=== PATIENT | female | born 1990 | race Caucasian/White ===

== ENCOUNTER 2018-04-22 14:03 | Emergency (ER) | payer BC ==
--- NOTE | 2018-04-22 14:19 | EDM.PDOC ---
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 Today pt had episodic heavy vaginal bleeding with passage of clots and continued pain. She states her periods have always been regular every 35 days. Her next period isn't due until 6 days from now. She has had several negative home tests. She admits to nausea. Denies vomiting, fever, chills, diarrhea, constipation, back pain, flank pain, or dysuria. Pt is a G0, P0. Denies Hx of Abd/pelvic surgeries, STD, or abnormal PAP smears. Onset: Gradual Duration: Constant Location: Reports: Pelvis Quality: Reports: Sharp, Other (Cramping) Severity: Severe Improves with: Reports: None Worsens with: Reports: None Associated Symptoms: Reports: No Other Symptoms Lower Abdomen Pain Score (Numeric/FACES): 1 - Related Data Allergies Allergy/AdvReac Type Severity Reaction Status Date / Time Penicillins Allergy Weakness Verified 04/22/18 14:24 Home Meds: Home Meds . [No Known Home Meds] 04/21/16 [History] Past Medical History - Infectious Disease History Infectious Disease History: Reports: None - Past Surgical History HEENT Surgical History: Reports: Oral Surgery Social & Family History - Family History Family Medical History: Noncontributory - Caffeine Use Caffeine Use: Reports: Coffee - Living Situation & Occupation Living situation: Reports: with Significant Other Occupation: Employed ED ROS GENERAL - Review of Systems Review Of Systems: ROS reveals no pertinent complaints other than HPI. ED EXAM, RENAL/ - Physical Exam Exam: See Below Exam Limited By: No Limitations General Appearance: Alert, WD/WN, No Apparent Distress Nose: Normal Inspection, Normal Mucosa, No Blood Throat/Mouth: Normal Inspection, Normal Lips, Normal Teeth, Normal Gums, Normal Oropharynx, Normal Voice, No Airway Compromise Head: Atraumatic, Normocephalic Neck: Normal Inspection, Supple, Non-Tender, Full Range of Motion Respiratory/Chest: No Respiratory Distress, Lungs Clear, Normal Breath Sounds, No Accessory Muscle Use, Chest Non-Tender Cardiovascular: Regular Rate, Rhythm, No Edema GI/Abdominal: Normal Bowel Sounds, Soft, No Organomegaly, No Distention, No Abnormal Bruit, No Mass, Pelvis Stable, Tender (LLQ abd. and left pelvis). No: Guarding, Rigid (Female) Exam: Other (pt refuses pelvic exam) Rectal (Female) Exam: Deferred Back Exam: Normal Inspection, Full Range of Motion. No: CVA Tenderness (L), CVA Tenderness (R) Extremities: Normal Inspection, Normal Range of Motion, Non-Tender, Normal Capillary Refill, No Pedal Edema Neurological: Alert, Oriented, CN II-XII Intact, Normal Cognition, Normal Gait, No Motor/Sensory Deficits Course - Vital Signs Last Recorded V/S: Last Vital Signs Temp 37.3 C 04/22/18 14:20 Pulse 96 04/22/18 14:20 Resp 16 04/22/18 14:20 BP 123/81 04/22/18 14:20 Pulse Ox 97 04/22/18 14:20 - Orders/Labs/Meds Orders: Active Orders 24 hr Category Date Time Status Pelvis Non OB Comp [US] Urgent Exams 04/22/18 16:03 Taken Labs: Laboratory Tests 04/22/18 04/22/18 04/22/18 Range/Units 14:37 14:37 14:37 WBC 9.2 (5.0-10.0) 10^3/uL RBC 4.75 (4.2-5.4) 10^6/uL Hgb 13.9 (12.0-16.0) g/dL Hct 40.8 (37.0-47.0) % MCV 85.9 (80-100) fL MCH 29.3 (27.0-34.0) pg MCHC 34.1 (33.0-35.0) g/dL Plt Count 338 (150-450) 10^3/uL Neut % (Auto) 71.6 (42.2-75.2) % Lymph % (Auto) 20.3 L (20.5-50.1) % [place] % (Auto) 7.4 (2-8) % Eos % (Auto) 0.5 L (1.0-3.0) % Baso % (Auto) 0.2 (0.0-1.0) % Sodium 138 (135-145) mmol/L Potassium 3.7 (3.6-5.0) mmol/L Chloride 104 (101-111) mmol/L Carbon Dioxide 26.0 (21.0-31.0) mmol/L Anion Gap 11.7 BUN 14 (7-18) mg/dL Creatinine 1.0 (0.6-1.3) mg/dL Est Cr Clr Drug Dosing 79.99 mL/min Estimated GFR (MDRD) > 60 BUN/Creatinine Ratio 14.00 Glucose 93 (74-105) mg/dL Calcium 9.0 (8.4-10.2) mg/dl Total Bilirubin 0.7 (0.2-1.0) mg/dL AST 22 (10-42) IU/L ALT 29 (10-60) IU/L Alkaline Phosphatase 41 L (42-121) IU/L Total Protein 7.6 (6.7-8.2) g/dl Albumin 4.3 (3.2-5.5) g/dl Globulin 3.3 Albumin/Globulin Ratio 1.30 HCG, Qual Negative Urine Color (YELLOW) Urine Appearance (CLEAR) Urine pH (5.0-9.0) Ur Specific [place] (1.005-1.030) Urine Protein (NEGATIVE) Urine Glucose (UA) (NEGATIVE) Urine Ketones (NEGATIVE) Urine Occult Blood (NEGATIVE) Urine Nitrite (NEGATIVE) Urine Bilirubin (NEGATIVE) Urine Urobilinogen (0.2-1.0) mg/dL Ur Leukocyte Esterase (NEGATIVE) Urine RBC /HPF Urine WBC (0-5/HPF) /HPF Ur Epithelial Cells /HPF Amorphous Sediment (0/HPF) /HPF Urine Bacteria (0-FEW/HPF) /HPF Urine Mucus /LPF Urinalysis Comment 04/22/18 Range/Units 15:22 WBC (5.0-10.0) 10^3/uL RBC (4.2-5.4) 10^6/uL Hgb (12.0-16.0) g/dL Hct (37.0-47.0) % MCV (80-100) fL MCH (27.0-34.0) pg MCHC (33.0-35.0) g/dL Plt Count (150-450) 10^3/uL Neut % (Auto) (42.2-75.2) % Lymph % (Auto) (20.5-50.1) % [place] % (Auto) (2-8) % Eos % (Auto) (1.0-3.0) % Baso % (Auto) (0.0-1.0) % Sodium (135-145) mmol/L Potassium (3.6-5.0) mmol/L Chloride (101-111) mmol/L Carbon Dioxide (21.0-31.0) mmol/L Anion Gap BUN (7-18) mg/dL Creatinine (0.6-1.3) mg/dL Est Cr Clr Drug Dosing mL/min Estimated GFR (MDRD) BUN/Creatinine Ratio Glucose (74-105) mg/dL Calcium (8.4-10.2) mg/dl Total Bilirubin (0.2-1.0) mg/dL AST (10-42) IU/L ALT (10-60) IU/L Alkaline Phosphatase (42-121) IU/L Total Protein (6.7-8.2) g/dl Albumin (3.2-5.5) g/dl Globulin Albumin/Globulin Ratio HCG, Qual Urine Color Red (YELLOW) Urine Appearance Turbid (CLEAR) Urine pH 6.0 (5.0-9.0) Ur Specific [place] 1.020 (1.005-1.030) Urine Protein 100 H (NEGATIVE) Urine Glucose (UA) Negative (NEGATIVE) Urine Ketones Negative (NEGATIVE) Urine Occult Blood Large H (NEGATIVE) Urine Nitrite Negative (NEGATIVE) Urine Bilirubin Negative (NEGATIVE) Urine Urobilinogen 0.2 (0.2-1.0) mg/dL Ur Leukocyte Esterase Small H (NEGATIVE) Urine RBC >100 H /HPF Urine WBC 5-10 H (0-5/HPF) /HPF Ur Epithelial Cells Rare /HPF Amorphous Sediment Rare (0/HPF) /HPF Urine Bacteria Rare (0-FEW/HPF) /HPF Urine Mucus Rare /LPF Urinalysis Comment See note - Radiology Interpretation Free Text/Narrative:: Non-Ob pelvic US: no acute findings, see Rad. report. Departure - Departure Time of Disposition: 16:42 Disposition: Home, Self-Care 01 Condition: Good Clinical Impression: Dysfunctional uterine bleeding - Discharge Information *PRESCRIPTION DRUG MONITORING PROGRAM REVIEWED*: No *COPY OF PRESCRIPTION DRUG MONITORING REPORT IN PATIENT SUKUMAR: No Instructions: Dysfunctional Uterine Bleeding, Pelvic Pain, Female Forms: ED Department Discharge Additional Instructions: Use Ibuprofen (Advil/Motrin) 200mg: Take 3 tablets by mouth every 6 hours as needed for pain. Take with food. Follow up in clinic for recheck with your doctor if the bleeding last longer than a period, or if the pain persists. Return to ER if the pain becomes severe, you become lightheaded or faint, or have heavy vaginal bleeding (soaking one large pad per hour for 2 or more hours) . - My Orders Last 24 Hours: My Active Orders 04/22/18 16:03 Pelvis Non OB Comp [US] Urgent - Assessment/Plan Last 24 Hours: My Active Orders 04/22/18 16:03 Pelvis Non OB Comp [US] Urgent
[2018-04-22 14:21] VITALS: BP 123/81
[2018-04-22 15:02] LABS: ANION GAP 11.7; CHLORIDE,CL 104 mmol/L (101-111); SODIUM,NA 138 mmol/L (135-145)
--- NOTE | 2018-04-22 16:42 | US ---
Clinical history: 28-year-old female left pelvic pain and "abnormal" vaginal bleeding (LMP 3 2017). test "negative". Interpretation: Emergency sonogram pelvis unremarkable except for solitary nabothian cyst, cervix. Midline uterus normal size and anatomic configuration measures 10 cm in length and 3.25 cm AP diamete r with a normal 5.6 mm thin central endometrial "stripe". (Solitary nabothian cyst in cervix). No sign of myometrial fibroid mass lesion, endometrial polyp, fluid in the endometrial canal or intra /extrauterine gestational sac. Solitary 1 centimeter diameter cyst periphery of each ovary. No solid ovarian mass or extraovarian adnexal lesion. No free fluid in the cul-de-sac. Right ovary measures 3.17L x 2.3 cm W x 1.5 cm AP diameter. Left ovary measures 3.0 cm L x 2.7 cm W x 1.3 cm AP diameter.
== END 2018-04-22 17:22 | disposition home or self-care (01) ==
LOC: DL.ED 14:03
DX: N93.8 Other specified abnormal uterine and vaginal bleeding (principal); Z88.0 Allergy status to penicillin
CPT/HCPCS: 36415; 76856; 80053; 81001; 84703; 85025; 99284

== ENCOUNTER 2018-10-13 15:08 | Emergency (ER) | payer OTHER, BC ==
--- NOTE | 2018-10-13 15:37 | CR ---
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 Interpretation: Soft tissue swelling (STS) but no sign of underlying fracture or dislocation right middle (third) finger. No foreign bodies.
--- NOTE | 2018-10-13 15:43 | EDM.PDOC ---
ED HPI GENERAL MEDICAL PROBLEM - General Stated Complaint: MAY HAVE BROKEN FINGER Time Seen by Provider: 10/13/18 15:30 Source of Information: Reports: Patient History Limitations: Reports: No Limitations - History of Present Illness INITIAL COMMENTS - FREE TEXT/NARRATIVE: This 28 yo female patient reports to the ED with pain in right middle finger. The patient works at the [employer] and accidentally closed her finger in the [employer] door on 10/12/18 at about 0400 in the morning. The patient has experienced increased pain and swelling in the area since the time of the injury. The patient has been icing, elevating and immobilizing the injury. 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 [No Known Home Meds] 04/21/16 [History] Past Medical History - Infectious Disease History Infectious Disease History: Reports: None - Past Surgical History HEENT Surgical History: Reports: Oral Surgery Social & Family History - Family History Family Medical History: Noncontributory - Caffeine Use Caffeine Use: Reports: Coffee - Living Situation & Occupation Living situation: Reports: with Significant Other Occupation: Employed Review of Systems - Review of Systems Review Of Systems: ROS reveals no pertinent complaints other than HPI. ED EXAM, GENERAL - Physical Exam Exam: See Below Exam Limited By: No Limitations General Appearance: Alert, WD/WN, No Apparent Distress Eye Exam: Bilateral Eye: EOMI Nose: Normal Inspection Throat/Mouth: Normal Inspection Head: Atraumatic Extremities: Arm Pain (right 3rd hand pain) Neurological: Alert, Oriented, CN II-XII Intact, Normal Cognition, Normal Gait, Normal Reflexes, No Motor/Sensory Deficits Psychiatric: Normal Affect, Normal Mood Lymphatic: No Adenopathy Departure - Departure Time of Disposition: 15:44 Disposition: Home, Self-Care 01 Condition: Fair Clinical Impression: Contusion of right middle finger Qualifiers: Encounter type: initial encounter Damage to nail status: without damage Qualified Code(s): S60.031A - Contusion of right middle finger without damage to nail, initial encounter - Discharge Information *PRESCRIPTION DRUG MONITORING PROGRAM REVIEWED*: Not Applicable *COPY OF PRESCRIPTION DRUG MONITORING REPORT IN PATIENT SUKUMAR: Not Applicable Instructions: Contusion, [id number] Forms: ED Department Discharge Care Plan Goals: The patient was advised of the examination and x-ray results during the visit. The patient was encouraged to continue to rest, ice and elevate the extremity. If the patient has any additional symptoms or concerns, the patient should either return to the emergency department or visit the emergency department.
[2018-10-13 16:05] VITALS: BP 128/91
== END 2018-10-13 15:59 | disposition home or self-care (01) ==
LOC: DL.ED 15:08
DX: S60.031A Contusion of right middle finger without damage to nail, initial encounter (principal); Z88.0 Allergy status to penicillin; W23.0XXA Caught, crushed, jammed, or pinched between moving objects, initial encounter
CPT/HCPCS: 73140-F7; 99283-25

== ENCOUNTER 2019-10-25 07:39 | Inpatient (IN) | payer BC ==
[~2019-10-25 07:39] MED LIST: Carboprost Tromethamine 250 MCG/1 ML Amp IM PRN; Lidocaine 1% 30 ML SDV INJECT PRN; Methylergonovine 0.2 MG/1 ML Amp IM PRN; Misoprostol 400 MCG (4 X 100 MCG TAB) RECTAL PRN; Oxytocin/Normal Saline 30 UNIT/500 ML BAG IV SCH; Sodium Chloride 0.9% 10 ML Syringe FLUSH PRN; Tranexamic Acid 1,000 MG in Sodium Chloride 0.9% 100 ML IV PRN; fentaNYL 100 MCG/2 ML SDV IVPUSH PRN
[2019-10-25] MEDS: Misoprostol 25 MCG (1/4 of 100 MCG) Tab VAG PRN ×2 (08:20→12:25)
[2019-10-25] MEDS: Lactated Ringers 1,000 ML IV ONE (19:05)
[2019-10-25] MEDS: Ondansetron 4 MG/2 ML SDV IVPUSH PRN (23:25)
[2019-10-26] MEDS: Lactated Ringers 1,000 ML IV ONE ×2 (01:42→07:49)
[2019-10-26] MEDS ORDERED: hydrOXYzine HCl 25 MG Tab PO PRN (07:22)
[2019-10-26] MEDS: Ondansetron 4 MG/2 ML SDV IVPUSH PRN (07:41)
--- NOTE | 2019-10-26 07:54 | PN ---
DATE: 10/26/2019 SUBJECTIVE: Hospital day #2. The patient under induction of labor for mild preeclampsia. We are nearing the 24-hour jerry. She had 2 doses of Cytotec and contractions became too frequent to continue with the Cytotec and she was nila well on her own. However, the contractions had spaced out, so Pitocin was started around 5 o'clock this morning and is now up to 4. She is reporting that she is having difficulty finding positions of comfort. Her hips hurt, her buttocks hurt, her back hurts. She has cried 3 times over discomfort from the IV in her left arm and growing increasingly frustrated with the induction process and how much this is not in concordance with her plan. Baby movement still has been good. Her favorite thing to do is to take whirlpool bath. OBJECTIVE: Vital Signs: Most recent blood pressure 146/87, pulse of 88. She has had one pressure above 160. Otherwise, they have been hovering in the 140s and sometimes 150s/80s and 90s generally. Genitourinary: [place] shows baseline heart rate at 140, moderate beat-to- beat variability. Accelerations noted. Contractions every 3 to 4 minutes. Cervix 5 cm dilated, 75% and anterior position, and -2 station. Bag of water intact and was ruptured with AmniHook and I made sure that the head came down against the cervix without any other presenting parts and the patient tolerated well. Amniotic fluid clear. ASSESSMENT: 1. A 37 and 1/7 weeks 1, para 0. 2. Mild preeclampsia. 3. Undergoing induction of labor for mild preeclampsia. PLAN: Artificial rupture of membranes was performed. We will continue to monitor her closely and then anticipate continuing with the Pitocin and adjusting as needed. The patient did not have any decent sleep overnight, and we will offer her some Vistaril after we have a reactive tracing so that she can get some rest this morning, and hopefully we will be able to trace her contractions a little better as well. Since rupture variability has gone to moderate and baseline staying in the 140s, but she has had a couple of decels now, they are getting less intense with only 3 of them on the monitor, so we will just make sure that baby continues to tolerate and recheck her sooner if needed. [facility] /[id number]
[2019-10-26] MEDS ORDERED: fentaNYL 100 MCG/2 ML SDV ONE (08:08)
[2019-10-26] MEDS ORDERED: EPINEPHrine 1 MG/1 ML Amp ONE (08:08)
[2019-10-26] MEDS ORDERED: Simethicone 80 MG Tab.Chew PO PRN (08:49)
[2019-10-26] MEDS ORDERED: Benzocaine/Menthol 20%-0.5% Spray 56 GM Canister TOP PRN (08:49)
--- NOTE | 2019-10-26 09:09 | DEL ---
DATE: 10/26/2019 PRE PROCEDURE DIAGNOSES: 1. A 37 and 1/7 weeks intrauterine . 2. 1, para 0. 3. Mild preeclampsia. 4. Polyhydramnios. 5. Varicella, susceptible. 6. Bacterial vaginosis in the first trimester. POSTPROCEDURE DIAGNOSES: 1. A 37 and 1/7 weeks intrauterine . 2. 1, now para 1-0-0-1. 3. Mild preeclampsia. 4. Polyhydramnios. 5. Varicella, susceptible. 6. Bacterial vaginosis in the first trimester. 7. Status post spontaneous vaginal delivery. 8. Status post first-degree laceration repair. BRIEF HISTORY: A 29-year-old female admitted to the hospital for Cytotec induction because of mild preeclampsia at early term. She had 2 doses of Cytotec and that brought on nice regular contractions and got her to 4+ cm dilated. She continued to contract well on her own after that, but overnight, the contractions had spaced out and Pitocin was initiated at around 5 o'clock this morning, and only up to 3. When I came in at 7 o'clock, she was 5 cm dilated, 75% effaced, and bag of water was ruptured at 0709 with return of copious clear fluid. After that, the patient progressed very rapidly to complete just before 8 a.m., and we delivered at around 0804 a.m. with her only pushing through 1-1/2 contractions. DETAILS: With the patient in dorsal lithotomy position, she delivered a viable female over intact perineum in the OA position. Baby was dried and stimulated and short umbilical cord noted, so baby placed on mother's abdomen and 3-vessel umbilical cord was doubly clamped and then cut by the patient's and then baby allowed to stay with mom for skin to skin. Cord blood sample was obtained, however, it was noted that the umbilical cord had clotted rather rapidly, so I expressed the clot in order to obtain the blood sample, and when the nurse went to put the cord blood into the vial, she noted that the sample had clotted very quickly as well. Placenta delivered by gentle cord traction and concomitant uterine massage inspected and intact. Labia and vagina were inspected. There was a small first-degree laceration of the perineum that was bleeding and required repair, so she was anesthetized with approximately 10 mL of 1% lidocaine without epinephrine. 3-0 Vicryl running suture was then used to repair the laceration with approximately 4 throws and the patient tolerated this well. FINDINGS: Early term female . Weight 2560g, 5# 10oz and 9 & 9. Placenta intact with battledore insertion of the umbilical cord. Otherwise, normal in appearance to gross inspection and first-degree laceration repaired. ESTIMATED BLOOD LOSS: 200 mL. COMPLICATIONS: None. DISPOSITION: Mother and baby to stay in the room and initiate . [facility] /[id number]
[2019-10-26] MEDS: Docusate Sodium 100 MG Cap PO PRN ×2 (11:45→21:54)
[2019-10-26] MEDS: Ibuprofen 800 MG Tab PO PRN ×2 (13:32→23:22)
[2019-10-26] MEDS: Prenatal Multivitamin with Calcium/Folic Acid/Iron Tab PO SCH (13:33)
[2019-10-26] MEDS: Acetaminophen 325 MG Tab PO PRN ×2 (17:34→21:53)
[2019-10-27] MEDS: Acetaminophen 325 MG Tab PO PRN ×2 (04:59→14:53)
[2019-10-27] MEDS: Docusate Sodium 100 MG Cap PO PRN ×2 (08:12→21:44)
[2019-10-27] MEDS: Prenatal Multivitamin with Calcium/Folic Acid/Iron Tab PO SCH (08:12)
[2019-10-27] MEDS: Ibuprofen 800 MG Tab PO PRN ×2 (08:13→17:19)
--- NOTE | 2019-10-27 08:42 | PN ---
DATE: 10/27/2019 SUBJECTIVE: day #1. The patient is overall doing well. She has been ambulating and tolerating a regular diet. Reporting some discomfort in her right leg that seems to have gotten better when it instead turned into upper back pain, and she is reporting a pressure point in this region that usually resolved well without chiropractic treatment, but at this time the pain and muscle spasm she is experiencing is making it difficult for her to breathe. Denies any symptoms of respiratory or pulmonary etiology with her difficulty breathing and it is just a musculoskeletal etiology. Bleeding has been moderate. has been met with some difficulties and she is needing to use a tube at breast. Otherwise, she is denying any headaches, right upper quadrant pain, significant edema, or other symptoms of preeclampsia. OBJECTIVE: Vital Signs: Temperature is 98.5, pulse 68, blood pressure 148/91, prior to that 135/83, respiratory rate of 16. Heart: Regular without murmur. Lungs: Clear to auscultation bilaterally. Back: Upper back: Some muscle spasm is noted more so on the right than the left. Abdomen: Soft, nontender. Fundus is firm and below the umbilicus. Extremities: No edema, erythema, or tenderness noted. ASSESSMENT: 1. Mild preeclampsia. 2. Status post spontaneous vaginal delivery with first-degree laceration repair. 3. Varicella susceptible. 4. Upper back pain. PLAN: At this time, we are going to add some physical therapy to her regimen. Continue with support and anticipate discharge home tomorrow. Continue to watch her blood pressures and make sure that things do not spike. The patient has been educated that eclampsia can still present . Therefore, we would like to see that improved before we get her discharged home. At this time, electing not to use blood pressure medications because her pressures are only borderline and are expected to improve. [facility] /[id number]
[2019-10-28] MEDS: Prenatal Multivitamin with Calcium/Folic Acid/Iron Tab PO SCH ×2 (07:35→12:30)
[2019-10-28] MEDS: Docusate Sodium 100 MG Cap PO PRN (07:35)
[2019-10-28] MEDS: Acetaminophen 325 MG Tab PO PRN (07:35)
[2019-10-28] MEDS: Ibuprofen 800 MG Tab PO PRN (07:36)
[2019-10-28 08:37] VITALS: BP 158/93; PULSE 72
--- NOTE | 2019-10-31 16:45 | DISCH ---
ADMITTING DIAGNOSES: 1. 37 and 1/7 weeks intrauterine . 2. Mild preeclampsia. 3. Varicella susceptible. DISCHARGE DIAGNOSES: 1. 37 and 2/7 weeks, status post spontaneous vaginal delivery with first- degree laceration repair. 2. Back pain. 3. Mild preeclampsia. 4. Varicella susceptible. BRIEF HISTORY: A 29-year-old female, 1, para 0, with the above-listed diagnoses, brought into the hospital for Cytotec induction due to mild preeclampsia. Induction of labor went well, transitioning from Cytotec over to Pitocin. After she reached 5 cm, artificial rupture of membranes performed because contractions had slowed down and she was complete and delivered approximately 1 hour after rupture. She did receive 1 dose of fentanyl during her labor course. She had requested intrathecal but progressed too rapidly to receive 1 and only pushed for about 1-1/2 contractions. Of note, at delivery, the umbilical cord clotted very easily before I was able to collect the normal cord blood sample. The placenta also had a battledore insertion and a thin and short umbilical cord. Otherwise, no abnormalities were noted. HOSPITAL COURSE: Has been good. The patient tolerated labor and induction well. She has been bonding well with her baby. Breast milk has been slow to come in and she has been requiring tube at breast in order to keep baby stimulated and interested enough to remain at breast. The back pain improved after reduction of posterior dislocation and heating pad. Otherwise, she has been ambulating, tolerating regular diet, voiding and stooling without difficulties, and has no other acute concerns. DISCHARGE CONDITION: Good. PHYSICAL EXAMINATION: Vital Signs: Temperature is 98.2, pulse 72, blood pressure was 158/93, respiratory rate of 16. Heart: Regular without murmur. Lungs: Clear bilaterally with good chest expansion. Abdomen: Soft. Fundus is firm and below the umbilicus. Extremities: No edema, erythema, or tenderness noted. LABORATORY DATA: Admission hemoglobin was 11.5, platelets of 267. Less than 200 of EBL at delivery, therefore I did not recheck the hemoglobin. [facility] labs were negative except for protein-creatinine ratio of 0.45. MEDICATIONS: Ibuprofen 800 mg every 8 hours as needed for pain, Tylenol 650 to 1000 mg as needed for pain, iron 325 mg twice daily, Colace 100 mg twice daily as needed for constipation, vitamin continue 1 daily. FOLLOWUP: She will be seen in the office in a couple of days for repeat blood pressure when she brings her daughter in for first check. She has been educated about signs and symptoms of preeclampsia and to monitor her blood pressures at least once daily and to continue relatively low activity. Otherwise, pelvic rest for 6 weeks and routine post vaginal delivery care. Her questions have been answered. [facility] /[id number]
== END 2019-10-28 09:30 | disposition home or self-care (01) | DRG 560 ==
LOC: DL.OB 07:39 → OBSVTOIN 10-26 08:04
PROVIDERS: ADMIT Family Medicine; ATTEND Family Medicine
PROC: 10E0XZZ Delivery of Products of Conception, External Approach (ICD-10-PCS; principal; 2019-10-26)
PROC: 10907ZC Drainage of Amniotic Fluid, Therapeutic from Products of Conception, Via Natural or Artificial Opening (ICD-10-PCS; 2019-10-26)
PROC: 3E033VJ Introduction of Other Hormone into Peripheral Vein, Percutaneous Approach (ICD-10-PCS; 2019-10-26)
PROC: 0HQ9XZZ Repair Perineum Skin, External Approach (ICD-10-PCS; 2019-10-26)
DX: O14.04 Mild to moderate pre-eclampsia, complicating childbirth (principal); Z3A.37 37 weeks gestation of pregnancy; Z37.0 Single live birth; O40.3XX0 Polyhydramnios, third trimester, not applicable or unspecified; M54.6 Pain in thoracic spine; O70.0 First degree perineal laceration during delivery; Z28.82 Immunization not carried out because of caregiver refusal
CPT/HCPCS: 36415; 59409; 82565; 82570; 83615; 84156; 84450; 84460; 84520; 84550; 85027; A9270-GY; J2001; J2405; J2590; J3010; J7120

== ENCOUNTER 2021-11-23 11:19 | Inpatient (IN) | payer BC ==
[2021-11-23] MEDS ORDERED: Methylergonovine 0.2 MG/1 ML Amp IM PRN (12:50)
[2021-11-23] MEDS ORDERED: Acetaminophen 325 MG Tab PO PRN (12:50)
[2021-11-23] MEDS ORDERED: Ondansetron 4 MG/2 ML SDV IVPUSH PRN ×2 (12:50→12:54)
[2021-11-23] MEDS ORDERED: Lactated Ringers 1,000 ML IV ONE (12:50)
[2021-11-23] MEDS ORDERED: Carboprost Tromethamine 250 MCG/1 ML Amp IM PRN (12:50)
[2021-11-23] MEDS ORDERED: Sodium Chloride 0.9% 10 ML Syringe FLUSH PRN (12:50)
[2021-11-23] MEDS ORDERED: Lidocaine 1% 30 ML SDV INJECT PRN (12:50)
[2021-11-23] MEDS ORDERED: Misoprostol 400 MCG (4 X 100 MCG TAB) RECTAL PRN (12:50)
[2021-11-23] MEDS ORDERED: Tranexamic Acid 1,000 MG in Sodium Chloride 0.9% 100 ML IV PRN (12:50)
[2021-11-23] MEDS ORDERED: Promethazine 25 MG/ML SDV IM PRN (12:54)
[2021-11-23] MEDS ORDERED: Naloxone 2 MG/2 ML Syringe IVPUSH PRN (12:54)
[2021-11-23] MEDS ORDERED: ePHEDrine 50 MG/ML SDV IVPUSH PRN (12:54)
[2021-11-23] MEDS ORDERED: fentaNYL 100 MCG/2 ML SDV IVPUSH PRN (12:54)
[2021-11-23] MEDS ORDERED: Lactated Ringers 1,000 ML IV SCH (13:00)
[2021-11-23] MEDS ORDERED: Naltrexone 50 MG Tab PO SCH (13:00)
[2021-11-23] MEDS ORDERED: Lactated Ringers 500 ML IV SCH ×2 (13:00)
[2021-11-23] MEDS ORDERED: Oxytocin/Normal Saline 30 UNIT/500 ML BAG IV SCH (13:00)
[2021-11-23] MEDS ORDERED: Simethicone 80 MG Tab.Chew PO PRN (18:03)
[2021-11-23] MEDS ORDERED: Benzocaine/Menthol 20%-0.5% Spray 78 GM Cannister TOP PRN (18:03)
[2021-11-23] MEDS ORDERED: Oxytocin 10 Units/1 ML SDV IM PRN (18:03)
[2021-11-23] MEDS: Ibuprofen 800 MG Tab PO PRN (21:07)
[2021-11-23] MEDS: Docusate Sodium 100 MG Cap PO PRN (21:08)
[2021-11-24] MEDS: Ibuprofen 800 MG Tab PO PRN (08:17)
[2021-11-24] MEDS: Docusate Sodium 100 MG Cap PO PRN (08:17)
[2021-11-24] MEDS ORDERED: Prenatal Multivitamin with Calcium/Folic Acid/Iron Tab PO SCH (09:00)
[2021-11-24 09:40] VITALS: BP 114/72; PULSE 96
== END 2021-11-24 18:20 | disposition home or self-care (01) | DRG 560 ==
LOC: DL.OBCHECK 11:19 → DL.OB 12:50 → UNDOADMOB 13:06 → OBSVTOIN 18:01 → DL.OB 18:01
PROVIDERS: ADMIT Family Medicine; ATTEND Family Medicine
PROC: 10E0XZZ Delivery of Products of Conception, External Approach (ICD-10-PCS; principal; 2021-11-23)
PROC: 10907ZC Drainage of Amniotic Fluid, Therapeutic from Products of Conception, Via Natural or Artificial Opening (ICD-10-PCS; 2021-11-23)
PROC: 3E033VJ Introduction of Other Hormone into Peripheral Vein, Percutaneous Approach (ICD-10-PCS; 2021-11-23)
PROC: 0HQ9XZZ Repair Perineum Skin, External Approach (ICD-10-PCS; 2021-11-23)
PROC: 4A1HXCZ Monitoring of Products of Conception, Cardiac Rate, External Approach (ICD-10-PCS; 2021-11-23)
DX: O24.420 Gestational diabetes mellitus in childbirth, diet controlled (principal); Z3A.38 38 weeks gestation of pregnancy; Z37.0 Single live birth; Z88.0 Allergy status to penicillin; Z88.8 Allergy status to other drugs, medicaments and biological substances; O99.02 Anemia complicating childbirth; D64.9 Anemia, unspecified; O13.4 Gestational [pregnancy-induced] hypertension without significant proteinuria, complicating childbirth; Z20.822 Contact with and (suspected) exposure to COVID-19
CPT/HCPCS: 36415; 59409; 82565; 82570; 82947; 84156; 84450; 84460; 84520; 85027; A9270-GY; J2590; J7120; U0002

== ENCOUNTER 2022-06-05 20:03 | Emergency (ER) | payer OTHER, BC ==
[2022-06-05 20:12] VITALS: BP 132/97; PULSE 90
== END 2022-06-05 20:10 | disposition home or self-care (01) ==
LOC: DL.ED 20:03
DX: S01.85XA Open bite of other part of head, initial encounter (principal); Z88.0 Allergy status to penicillin; Z88.1 Allergy status to other antibiotic agents; Z79.899 Other long term (current) drug therapy; W50.3XXA Accidental bite by another person, initial encounter
CPT/HCPCS: 99283

== ENCOUNTER 2023-02-15 13:11 | Emergency (ER) | payer BC ==
[2023-02-15] MEDS ORDERED: FLUoxetine 10 MG Cap PO ONE (14:18)
[2023-02-15 14:47] VITALS: BP 120/74; PULSE 88
== END 2023-02-15 14:45 | disposition home or self-care (01) ==
LOC: DL.ED 13:11
DX: O99.342 Other mental disorders complicating pregnancy, second trimester (principal); F43.0 Acute stress reaction; Z88.8 Allergy status to other drugs, medicaments and biological substances; Z88.0 Allergy status to penicillin; Z3A.19 19 weeks gestation of pregnancy
CPT/HCPCS: 99282; A9270; 99283

== ENCOUNTER 2023-03-27 12:08 | Emergency (ER) | payer BC ==
[2023-03-27] MEDS ORDERED: Sodium Chloride 0.9% 10 ML Syringe FLUSH PRN (12:19)
[2023-03-27 12:38] VITALS: BP 114/67; PULSE 92
[2023-03-27 12:38] LABS: EOSINOPHILS PERCENT AUTO 0.1 % (1.0-3.0); LYMPHOCYTES PERCENT AUTO 6.3 % (20.5-50.1); MEAN CORPUSCULAR HEMOGLOBIN 30.8 pg (27.0-34.0); MEAN CORPUSCULAR HGB CONC 34.3 g/dL (33.0-35.0); MEAN CORPUSCULAR VOLUME 89.7 fL (80-100); NEUTROPHILS PERCENT AUTO 88.6 % (42.2-75.2); PLATELET COUNT,PLT 351 10^3/uL (150-450); WHITE BLOOD CELL COUNT,WBC 8.1 10^3/uL (5.0-10.0)
[2023-03-27 12:55] LABS: ALBUMIN 2.7 g/dL (3.4-5.0); ANION GAP 15.7 mEq/L (7-13); BILIRUBIN TOTAL 0.5 mg/dL (0.2-1.0); C-REACTIVE PROTEIN 1.4 ng/dL (<=0.30); CALCIUM 8.3 mg/dL (8.5-10.1); CREATININE 0.61 mg/dL (0.55-1.02); EST CRCL DRUG DOSING (CG) 126.37 mL/min; MAGNESIUM 1.7 mg/dL (1.8-2.4); POTASSIUM,K 3.7 mmol/L (3.5-5.1); PROTEIN TOTAL,TP 6.7 g/dL (6.4-8.2)
[2023-03-27 12:57] LABS: A/G RATIO 0.68
[2023-03-27 13:01] LABS: LACTIC ACID 1.6 mmol/L (0.4-2.0)
[2023-03-27 13:15] LABS: APPEARANCE,URINE CLEAR (CLEAR); BILIRUBIN,URINE NEGATIVE (NEGATIVE); COLOR,URINE YELLOW (YELLOW); GLUCOSE,URINE NEGATIVE (NEGATIVE); KETONES,URINE 15 (NEGATIVE); LEUKOCYTE ESTERASE,URINE SMALL (NEGATIVE); NITRITE,URINE NEGATIVE (NEGATIVE); OCCULT BLOOD,URINE NEGATIVE (NEGATIVE); PROTEIN,URINE NEGATIVE (NEGATIVE); UROBILINOGEN,URINE 0.2 mg/dL (0.2-1.0)
[2023-03-27 13:22] LABS: AMORPHOUS SEDIMENT,URINE FEW /HPF (NOT SEEN); BACTERIA,URINE MODERATE /HPF (0-FEW/HPF); EPITHELIAL CELLS,URINE MODERATE /HPF (NOT SEEN); MUCUS,URINE MODERATE /LPF (NOT SEEN); RBC,URINE 0-5 /HPF (0-5); WBC,URINE 20-30 /HPF (0-5/HPF)
== END 2023-03-27 13:35 | disposition home or self-care (01) ==
LOC: DL.ED 12:08
DX: N30.01 Acute cystitis with hematuria (principal); Z88.8 Allergy status to other drugs, medicaments and biological substances; Z88.0 Allergy status to penicillin; Z88.1 Allergy status to other antibiotic agents
CPT/HCPCS: 36415; 80053; 81001; 83605; 83735; 85025; 86140; 87086; 87088; 99283; 99284; J3490

== ENCOUNTER 2023-06-28 18:06 | Inpatient (IN) | payer BC ==
[2023-06-28 19:22] LABS: HEMATOCRIT 35.3 % (37.0-47.0); HEMOGLOBIN 11.5 g/dL (12.0-16.0); MEAN CORPUSCULAR HEMOGLOBIN 29.9 pg (27.0-34.0); MEAN CORPUSCULAR HGB CONC 32.6 g/dL (33.0-35.0); MEAN CORPUSCULAR VOLUME 91.7 fL (80-100); RED BLOOD CELL COUNT 3.85 10^6/uL (4.2-5.4); WHITE BLOOD CELL COUNT,WBC 6.2 10^3/uL (5.0-10.0)
[2023-06-28] MEDS ORDERED: Acetaminophen 325 MG Tab PO PRN ×2 (19:39→22:19)
[2023-06-28] MEDS ORDERED: Misoprostol 400 MCG (4 X 100 MCG TAB) RECTAL PRN ×2 (19:39→22:19)
[2023-06-28] MEDS ORDERED: Methylergonovine 0.2 MG/1 ML Amp IM PRN (19:39)
[2023-06-28] MEDS ORDERED: Lactated Ringers 1,000 ML IV ONE (19:39)
[2023-06-28] MEDS ORDERED: Lidocaine 1% 30 ML SDV INJECT ONE (19:39)
[2023-06-28] MEDS ORDERED: Carboprost Tromethamine 250 MCG/1 ML Amp IM PRN ×2 (19:39→22:19)
[2023-06-28] MEDS ORDERED: Tranexamic Acid 1,000 MG in Sodium Chloride 0.9% 100 ML IV PRN ×2 (19:39→22:19)
[2023-06-28] MEDS ORDERED: Sodium Chloride 0.9% 10 ML Syringe FLUSH PRN (19:39)
[2023-06-28] MEDS ORDERED: Ondansetron 4 MG/2 ML SDV IVPUSH PRN (19:39)
[2023-06-28] MEDS ORDERED: Oxytocin/Normal Saline 30 UNIT/500 ML BAG IV SCH (19:45)
[2023-06-28] MEDS ORDERED: Lactated Ringers 1,000 ML IV SCH (19:45)
[2023-06-28] MEDS ORDERED: Docusate Sodium 100 MG Cap PO PRN (22:19)
[2023-06-28] MEDS ORDERED: Witch Hazel Medicated Pads 100/Jar TOP PRN (22:19)
[2023-06-28] MEDS ORDERED: Benzocaine/Menthol 20%-0.5% Spray 78 GM Cannister TOP PRN (22:19)
[2023-06-28] MEDS ORDERED: Oxytocin 10 Units/1 ML SDV IM PRN (22:19)
[2023-06-28] MEDS ORDERED: Simethicone 80 MG Tab.Chew PO PRN (22:19)
[2023-06-28] MEDS: Ibuprofen 800 MG Tab PO PRN (22:32)
[2023-06-29] MEDS ORDERED: Ferrous Sulfate 325 MG Tab PO SCH (08:00)
[2023-06-29] MEDS: Prenatal Multivitamin with Calcium/Folic Acid/Iron Tab PO SCH (08:51)
[2023-06-29] MEDS: Ibuprofen 800 MG Tab PO PRN (12:07)
[2023-06-30] MEDS: Prenatal Multivitamin with Calcium/Folic Acid/Iron Tab PO SCH (09:14)
[2023-06-30 11:47] VITALS: BP 118/78; PULSE 88
== END 2023-06-30 10:35 | disposition home or self-care (01) | DRG 560 ==
LOC: DL.OBCHECK 18:06 → DL.OB 19:02 → OBSVTOIN 21:21
PROVIDERS: ADMIT Family Medicine; ATTEND Family Medicine
PROC: 10E0XZZ Delivery of Products of Conception, External Approach (ICD-10-PCS; principal; 2023-06-29)
PROC: 10907ZC Drainage of Amniotic Fluid, Therapeutic from Products of Conception, Via Natural or Artificial Opening (ICD-10-PCS; 2023-06-29)
DX: O62.3 Precipitate labor (principal); O99.02 Anemia complicating childbirth; D64.9 Anemia, unspecified; O99.892 Other specified diseases and conditions complicating childbirth; R12 Heartburn; Z37.0 Single live birth; Z3A.38 38 weeks gestation of pregnancy
CPT/HCPCS: 36415; 59409; 85027; A9270-GY; J2590; J7120

== ENCOUNTER 2023-07-08 01:10 | Emergency (ER) | payer BC ==
[2023-07-08 01:05] VITALS: BP 122/79; PULSE 84
[~2023-07-08 01:10] MED LIST changes: +Acetaminophen 500 MG Tab PO ONE; -Carboprost Tromethamine 250 MCG/1 ML Amp IM PRN; -Lidocaine 1% 30 ML SDV INJECT PRN; -Methylergonovine 0.2 MG/1 ML Amp IM PRN; -Misoprostol 400 MCG (4 X 100 MCG TAB) RECTAL PRN; +Ondansetron 4 MG Tab.DIS PO ONE; -Oxytocin/Normal Saline 30 UNIT/500 ML BAG IV SCH; -Tranexamic Acid 1,000 MG in Sodium Chloride 0.9% 100 ML IV PRN; -fentaNYL 100 MCG/2 ML SDV IVPUSH PRN
[2023-07-08 01:32] LABS: HEMATOCRIT 36.1 % (37.0-47.0); HEMOGLOBIN 11.5 g/dL (12.0-16.0); MEAN CORPUSCULAR HEMOGLOBIN 29.5 pg (27.0-34.0); MEAN CORPUSCULAR HGB CONC 31.9 g/dL (33.0-35.0); MEAN CORPUSCULAR VOLUME 92.6 fL (80-100); PLATELET COUNT,PLT 519 10^3/uL (150-450)
[2023-07-08 01:32] LABS: APPEARANCE,URINE CLEAR (CLEAR); BILIRUBIN,URINE NEGATIVE (NEGATIVE); COLOR,URINE YELLOW (YELLOW); GLUCOSE,URINE NEGATIVE (NEGATIVE); KETONES,URINE NEGATIVE (NEGATIVE); LEUKOCYTE ESTERASE,URINE SMALL (NEGATIVE); NITRITE,URINE NEGATIVE (NEGATIVE); OCCULT BLOOD,URINE LARGE (NEGATIVE); PH,URINE 6.5 (5.0-9.0); PROTEIN,URINE 30 (NEGATIVE); UROBILINOGEN,URINE 0.2 mg/dL (0.2-1.0)
[2023-07-08 01:33] LABS: BASOPHILS PERCENT AUTO 0.2 % (0.0-1.0); EOSINOPHILS PERCENT AUTO 1.4 % (1.0-3.0); LYMPHOCYTES PERCENT AUTO 23.9 % (20.5-50.1); MONOCYTES PERCENT AUTO 8.8 % (2-8); NEUTROPHILS PERCENT AUTO 65.7 % (42.2-75.2)
[2023-07-08 01:34] LABS: AMPHETAMINES,URINE NEGATIVE (NEGATIVE); BARBITURATES,URINE NEGATIVE (NEGATIVE); BENZODIAZEPINE,URINE NEGATIVE (NEGATIVE); MDMA (ECSTASY), URINE NEGATIVE (NEGATIVE); METHADONE,URINE NEGATIVE (NEGATIVE); METHAMPHETAMINES,URINE NEGATIVE (NEGATIVE); OPIATES,URINE NEGATIVE (NEGATIVE); OXYCODONE,URINE NEGATIVE (NEGATIVE); PHENCYCLIDINE,URINE NEGATIVE (NEGATIVE); TCA,URINE NEGATIVE (NEGATIVE)
[2023-07-08 01:43] LABS: BACTERIA,URINE FEW /HPF (0-FEW/HPF); EPITHELIAL CELLS,URINE FEW /HPF (NOT SEEN); MUCUS,URINE MODERATE /LPF (NOT SEEN); RBC,URINE 50-75 /HPF (0-5)
[2023-07-08 01:52] LABS: EOSINOPHILS PERCENT MAN 1 % (1-3); LYMPHOCYTES PERCENT MAN 27 % (20-50); MONOCYTES PERCENT MAN 8 % (2-8); SEG NEUTROPHILS PERCENT MAN 64 % (42-75)
[2023-07-08 01:54] LABS: LACTIC ACID 1.5 mmol/L (0.4-2.0)
[2023-07-08 01:59] LABS: A/G RATIO 0.57; ALANINE AMINOTRANSFERASE,ALT 19 U/L (14-59); ALBUMIN 2.4 g/dL (3.4-5.0); ALKALINE PHOSPHATASE 103 U/L (46-116); ANION GAP 12.8 mEq/L (7-13); ASPARTATE AMNIOTRANSFERASE,AST 9 U/L (15-37); BILIRUBIN TOTAL 0.3 mg/dL (0.2-1.0); BLOOD UREA NITROGEN,BUN 15 mg/dL (7-18); BUN/CREATININE RATIO 16.7 (No establ ref range); CALCIUM 8.3 mg/dL (8.5-10.1); CARBON DIOXIDE,CO2 26 mmol/L (21-32); CHLORIDE,CL 105 mmol/L (98-107); EST CRCL DRUG DOSING (CG) 77.47 mL/min; ESTIMATED GFR 86 mL/min (>=60); ETHANOL BLOOD MEDICAL < 3 mg/dL (0); GLUCOSE RANDOM 106 mg/dL (70-99); POTASSIUM,K 3.8 mmol/L (3.5-5.1); PROTEIN TOTAL,TP 6.6 g/dL (6.4-8.2); SODIUM,NA 140 mmol/L (136-145); TSH ULTRASENSITIVE 0.85 uIU/mL (0.36-3.74)
[2023-07-08] MEDS ORDERED: Misoprostol 400 MCG (4 X 100 MCG TAB) ONE (04:15)
[2023-07-08] MEDS ORDERED: Gentamicin 40 MG/ML 2 ML Vial ONE (04:32)
== END 2023-07-08 05:45 | disposition home or self-care (01) ==
LOC: DL.ED 01:10
DX: O73.1 Retained portions of placenta and membranes, without hemorrhage (principal); O86.12 Endometritis following delivery; Z88.0 Allergy status to penicillin; Z88.8 Allergy status to other drugs, medicaments and biological substances
CPT/HCPCS: 36415; 76856; 80053; 80305; 80307; 81001; 83605; 84443; 84702; 85025; 86140; 86850; 86900; 86901; 87040; 87086; 99284; 99285; A9270; J3490